=== PATIENT | male | born 1945 | race Caucasian/White ===

== ENCOUNTER 2021-02-14 08:53 | Emergency (ER) | payer MEDICAID ==
[~2021-02-14] VITALS: Ht 170.2 cm; Wt 79.9 kg
[2021-02-14 09:02] VITALS: BP 175/100
--- NOTE | 2021-02-14 09:32 | NUR ---
Dr. Herrera at pt bedside for further evaluation.
--- NOTE | 2021-02-14 09:34 | NUR ---
76 Y/O MALE BIB DAUGHTER C/O LEFT FLANK PAIN X3DAYS 02/09 DESCRIBES ACHING NONRADIATING. PT DENIES FEVER/CHILLS, DENIES N/V/D. ABDOMEN IS SOFT, ROUND, NON-TENDER BOWEL SOUNDS ACTIVE X4, LAST BM 02/11/21. DENIES PMH NKA
[2021-02-14] MEDS ORDERED: NACL 0.9% 1,000 ML IV SCH (09:35)
[2021-02-14] MEDS ORDERED: KETOROLAC 15 MG/ML VIAL IVP ONE (09:35)
--- NOTE | 2021-02-14 09:57 | NUR ---
Obtained CT consent, placed in pt chart.
[2021-02-14 10:37] LABS: BASOPHILS % (AUTO) 0.5 % (0.0-2.0); EOSINOPHILS # (AUTO) 0.1 K/uL (0-0.4); HEMATOCRIT 39.1 % (36-52); HEMOGLOBIN 13.2 g/dL (12.0-18.0); LYMPHOCYTES # (AUTO) 1.8 K/uL (2.0-11.5); LYMPHOCYTES % (AUTO) 29.8 % (20.5-51.1); MEAN CORPUSCULAR HEMOGLOBIN 29 pg (27-31); MEAN CORPUSCULAR HGB CONC 34 g/dL (33-37); MEAN CORPUSCULAR VOLUME 85.7 fL (80-94); MONOCYTES # (AUTO) 0.4 K/uL (0.8-1.0); MONOCYTES % (AUTO) 6.4 % (1.7-9.3); NEUTROPHILS # (AUTO) 3.9 K/uL (1.8-7.7); NEUTROPHILS % (AUTO) 62.3 % (42.2-75.2); PLATELET COUNT (AUTO) 208 K/uL (140-450); RED BLOOD CELL COUNT(AUTO) 4.57 MIL/uL (4.20-6.10); RED CELL DISTRIBUTION WIDTH 14.2 % (11.6-13.7); WHITE BLOOD COUNT (AUTO) 6.2 K/uL (4.8-10.8)
[2021-02-14 11:09] LABS: ANION GAP 13.3 (8-16); CARBON DIOXIDE 24.4 mmol/L (21-32); CHLORIDE 109 mmol/L (98-107); CREATININE 0.9 mg/dL (0.6-1.3); GLUCOSE 83 mg/dL (74-106); POTASSIUM 3.7 mmol/L (3.5-5.1); SODIUM SERUM 143 mmol/L (136-145); UREA NITROGEN, BLOOD 15 mg/dL (7-18)
[2021-02-14 11:23] LABS: ASPARTATE AMINOTRANSFERASE 21 U/L (15-37); LIPASE 78 U/L (73-393); TOTAL BILIRUBIN 0.6 mg/dL (0.0-1.0)
--- NOTE | 2021-02-14 11:49 | NUR ---
Pt taken to CT via [facility].
[2021-02-14] MEDS ORDERED: MIRABULK PO (13:02)
[2021-02-14 13:19] VITALS: BP 175/100
--- NOTE | 2021-02-14 13:20 | NUR ---
Patient discharged with v/s stable. Written and verbal after care instructions given DIVERTICULOSIS, AND ABD PAIN and explained. Patient alert, oriented and verbalized understanding of instructions. Ambulatory with steady gait. All questions addressed prior to discharge. ID band removed. Patient advised to follow up with PMD. Rx of MIRALAX 1CAP DAILY PRN CONSTIPATION given. Patient educated on indication of medication including possible reaction and side effects. Opportunity to ask questions provided and answered.
== END 2021-02-14 13:20 | disposition home or self-care (01) ==
LOC: MED 08:53 → EDBD 08:53 → MED 13:20
DX: K59.00 Constipation, unspecified (principal); K80.20 Calculus of gallbladder without cholecystitis without obstruction; K57.90 Diverticulosis of intestine, part unspecified, without perforation or abscess without bleeding; N20.0 Calculus of kidney
CPT/HCPCS: 36415; 74177; 80053; 81002; 83690; 85025; 96361; 96374; 99285; J1885; J7030; Q9967